=== PATIENT | female | born 1980 | race Caucasian/White ===

== ENCOUNTER 2017-02-14 14:56 | Emergency (ER) | payer MEDICAID ==
[~2017-02-14] VITALS: Ht 154.9 cm; Wt 63.0 kg
[2017-02-14 15:45] VITALS: BP 117/71
[2017-02-14 16:59] LABS: UA SPECIFIC GRAVITY 1.015 (1.005-1.035); microscopic required? NO; urine erythrocyte NEGATIVE (NEGATIVE)
== END 2017-02-14 16:45 | disposition home or self-care (01) ==
LOC: ED 14:56
PROVIDERS: Emergency Medicine
DX: N39.0 Urinary tract infection, site not specified (principal); F17.200 Nicotine dependence, unspecified, uncomplicated; Z88.0 Allergy status to penicillin

== ENCOUNTER 2017-07-16 13:48 | Emergency (ER) | payer MEDICAID ==
[~2017-07-16] VITALS: Ht 152.4 cm; Wt 63.5 kg
[2017-07-16 13:59] VITALS: Ht 152.4 cm; Wt 63.5 kg
[2017-07-16 15:30] VITALS: BP 120/67
== END 2017-07-16 15:30 | disposition home or self-care (01) ==
LOC: ED 13:48
DX: J02.9 Acute pharyngitis, unspecified (principal); N39.0 Urinary tract infection, site not specified; Z88.0 Allergy status to penicillin; F17.210 Nicotine dependence, cigarettes, uncomplicated
CPT/HCPCS: J1100

== ENCOUNTER 2018-06-17 13:18 | Emergency (ER) | payer OTHER ==
[~2018-06-17] VITALS: Ht 162.6 cm; Wt 65.3 kg
[2018-06-17 13:23] VITALS: Ht 162.6 cm; Wt 65.3 kg
[2018-06-17 16:12] LABS: BASOPHIL % 0.3 % (0-2); RED CELL DISTRIBUTION WIDTH 12.3 % (11.5-14.5)
[2018-06-17 16:14] LABS: PLATELET COUNT 405 x10^3mcL (130-400)
[2018-06-17 16:24] LABS: CALCIUM 8.7 mg/dL (8.5-10.1); CARBON DIOXIDE 28.6 mmol/L (21-32); CHLORIDE SERUM 105 mmol/L (98-107); CREATININE SERUM 0.7 mg/dL (0.6-1.0); GFR1 > 60 mL/min; GLUCOSE SERUM 99 mg/dL (74-106); POTASSIUM SERUM 3.8 mmol/L (3.5-5.1); SODIUM SERUM 140 mmol/L (136-145)
[2018-06-17 16:28] LABS: ALBUMIN 3.8 g/dL (3.4-5.0); ALKALINE PHOSPHATASE 67 U/L (46-116); ALT/SGPT 31 U/L (14-59); AST/SGOT 14 U/L (15-37); BILIRUBIN TOTAL 0.75 mg/dL (0.20-1.00); LIPASE 241 IU/L (73-393); TOTAL PROTEIN, SERUM 7.6 g/dL (6.4-8.2)
[2018-06-17 18:28] VITALS: BP 111/72
== END 2018-06-17 18:21 | disposition home or self-care (01) ==
LOC: ED 13:18
PROVIDERS: Emergency Medicine
DX: D25.9 Leiomyoma of uterus, unspecified (principal); Z88.0 Allergy status to penicillin
CPT/HCPCS: 36415; J1885; Q0092